=== PATIENT | female | born 1940 | race Caucasian/White ===

== ENCOUNTER 2021-11-29 08:57 | Emergency (ER) | payer MEDICARE ==
[~2021-11-29] VITALS: Ht 165.1 cm; Wt 77.1 kg
--- NOTE | 2021-11-29 09:07 | NUR ---
DR LARSEN AT BEDSIDE
--- NOTE | 2021-11-29 09:33 | NUR ---
COVID SPECIMEN OBTAINED AND SENT TO LAB.
--- NOTE | 2021-11-29 09:55 | NUR ---
[employer] AT BEDSIDE FOR XRAY.
[2021-11-29 11:26] VITALS: BP 116/76
--- NOTE | 2021-11-29 11:26 | NUR ---
Patient discharged to home in stable condition. Written and verbal after care instructions given. Patient verbalizes understanding of instruction.
== END 2021-11-29 11:28 | disposition home or self-care (01) ==
LOC: ER 09:28
DX: J20.9 Acute bronchitis, unspecified (principal); Z20.822 Contact with and (suspected) exposure to COVID-19; F03.90 Unspecified dementia, unspecified severity, without behavioral disturbance, psychotic disturbance, mood disturbance, and anxiety; I10 Essential (primary) hypertension; E78.5 Hyperlipidemia, unspecified
CPT/HCPCS: 71045-TC; C9803